=== PATIENT | male | born 1995 | race Caucasian/White ===

== ENCOUNTER 2018-12-01 01:25 | Emergency (ER) | payer OTHER ==
[2018-12-01] MEDS ORDERED: NS 1,000 ML IV ONE (01:28)
[2018-12-01] MEDS ORDERED: ONDANSETRON 4MG PREPACK#2 BTL TAKEHOME ONE (02:23)
== END 2018-12-01 02:33 | disposition home or self-care (01) ==
DX: R11.2 Nausea with vomiting, unspecified (principal); E86.9 Volume depletion, unspecified